=== PATIENT | male | born 1930 | race Caucasian/White ===

== ENCOUNTER → 2016-11-06 | Outpatient (CLI) | payer MEDICARE, BC ==
--- NOTE | ~2016-11-06 | BD1 ---
[facility] A Service of [facility] RADIOLOGY TEXT RESULTS PATIENT: JETT LAO LOCATION: [facility] : 34 UNIT #: [id number] AGE: [address]: Da Cleveland MD SEX: M ORDER DR: [id number] [facility] [address] [place], [place] [address] [id number] O MR#: [id number] Acc #: [id number] NAME: JETT LAO : 1930 SEX: M STUDY DATE/TIME: 11/06/2016 11:10 UNIT: [facility] ROOM: STUDY DESCRIPTION: BD Dexa Bone Dens 1+ Site Attending Physician: Da Cleveland M.D. Referring Physician: Da Cleveland M.D. Ordering Physician: Da Cleveland M.D. Primary Care Physician: Da Dueñas M.D. MEDICAL IMAGING REPORT This report is preliminary unless electronic signature is present EXAM Bone density spine/hip, 11/06/2016. HISTORY Prostate cancer. Arthritis. External radiation treatment. Smoker 51 years, not current. Family history osteoporosis in sister. TECHNIQUE Bone density scanning performed upper 4 lumbar vertebral segments and left proximal femur. COMPARISON No comparisons. FINDINGS L1-L4: Total bone mineral density 1.094 g/cm2 for a T-score 0 standard deviations from the mean for a reference population normal young individuals and a Z-score 1.4 standard deviations above the mean for age-matched population. PROXIMAL LEFT FEMUR: Total bone mineral density 0.760 g/cm2 for a T-score 1.8 standard deviations below the mean for a reference population of normal young individuals and a Z-score 0.6 standard deviations below the mean for age-matched population. Left femoral neck bone mineral density 0.588 g/cm2 for a T-score of 2.5 standard deviations below the mean for a reference population of normal young individuals and a Z-score 0.8 standard deviations below the mean for an age-matched population. 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 Patient felt to be at significantly increased risk for fracture. Treatment options may be considered. Continued surveillance is recommended. [facility] A Service of [facility] RADIOLOGY TEXT RESULTS PATIENT: JETT LAO LOCATION: [facility] : 34 UNIT #: [id number] AGE: [address]: Da Cleveland MD SEX: M ORDER DR: Dictated by... Jett Goldstein M.D. THIS IS AN ELECTRONICALLY VERIFIED REPORT Jett Goldstein M.D. at 11/08/2016 5:58 PM ULISSES/chrissy TD: 11/07/2016 11:57 JOB #: [id number] MEDICAL IMAGING REPORT Page 1 of 1 COPY
== END | disposition home or self-care (01) ==
LOC: CWCC 10:45
DX: Z13.820 Encounter for screening for osteoporosis (principal); C61 Malignant neoplasm of prostate; M81.0 Age-related osteoporosis without current pathological fracture
CPT/HCPCS: 77080